=== PATIENT | female | born 1960 | race Caucasian/White ===

== ENCOUNTER 2022-09-14 16:27 | Outpatient (REF) | payer OTHER, SELFPAY ==
--- NOTE | ~2022-09-14 | MM_ITS ---
EXAMINATION: MM SCREENING DIGITAL BREAST TOMOSYNTHESIS, BILATERAL CLINICAL INFORMATION: Screening. Asymptomatic. The lifetime risk of breast cancer based on the Tyrer-Cuzick Model is 6%. COMPARISON: Outside mammography 06/14/2019, 12/15/2018, 12/07/2018, 12/02/2017 ([facility]). TECHNIQUE: Digital breast tomosynthesis is performed in both the craniocaudal and mediolateral oblique views along with computer-aided detection (CAD). Synthesized 2D images are generated from the tomosynthesis. FINDINGS: The breasts are heterogeneously dense, which may obscure small masses (ACR BI-RADS breast composition Category c). There are no significant masses, abnormal calcifications, or other abnormalities. Parenchymal pattern is similar to prior studies. There is no developing density or architectural abnormality. The axilla and skin contours are unremarkable. No significant changes. MM/MM tomosynthesis screening BI IMPRESSION: No mammographic evidence of malignancy. ASSESSMENT: BI-RADS 1: Negative RECOMMENDATION: Routine annual mammography screening. This patient's information was entered into a reminder system with a target due date for their next mammogram.
== END 2022-09-14 16:28 | disposition home or self-care (01) ==
LOC: HO.MAMMO 16:27
PROVIDERS: PCP Internal Medicine; Visit Provider Physician Assistant
DX: Z12.31 Encounter for screening mammogram for malignant neoplasm of breast (principal)
CPT/HCPCS: 77063; 77067

== ENCOUNTER 2022-12-13 16:59 | Outpatient (REF) | payer OTHER, SELFPAY ==
--- NOTE | ~2022-12-13 | XR_ITS ---
EXAMINATION: XR FOOT, RIGHT CLINICAL INFORMATION: Right foot pain. COMPARISON: None available. TECHNIQUE: AP, lateral, and oblique views of the right foot. FINDINGS: Minimal osteoarthritis in the 1st metatarsophalangeal joint with small marginal osteophytes. Joint spaces are normal. No erosions. Enthesopathic spurring is present at the Achilles tendon insertion on the calcaneus. Mild surrounding soft tissue swelling. Bones are osteopenic. XR/XR foot RT min 3V IMPRESSION: 1. 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 2. Enthesopathic spurring at the Achilles tendon insertion on the calcaneus with adjacent soft tissue swelling.
[2022-12-13 17:17] LABS: MANUAL DIFF FLAG NO
[2022-12-13 17:25] LABS: Basophils Percent Auto 0.4 % (0-2); Eosinophils Absolute Auto 0.2 X10*3/uL (0.0-0.4); Eosinophils Percent Auto 2.7 % (0-4); Hematocrit 41.1 % (37.0-47.0); Hemoglobin 13.4 g/dl (12.0-16.0); Imm Gran Abs Auto 0.02 X10*3/uL (0.00-0.03); Imm Gran Pct Auto 0.3 % (0.0-0.4); Lymphocytes Absolute Auto 2.6 X10*3/uL (1.2-4.9); Lymphocytes Percent Auto 36.8 % (20-40); Mean Corpuscular HGB Conc 32.6 g/dl (31.0-35.0); Mean Corpuscular Hemoglobin 30.1 pg (27.0-33.0); Mean Corpuscular Volume 92.4 fL (80.0-98.0); Monocytes Absolute Auto 0.5 X10*3/uL (0.1-1.2); Monocytes Percent Auto 6.6 % (2-11); Neutrophils Absolute Auto 3.8 x10*3/uL (2.0-8.3); Neutrophils Percent Auto 53.2 % (45-73); Platelet Count 198 X10*3/uL (160-400); Red Blood Count 4.45 X10*6/uL (4.20-5.50); Red Cell Distribution Width 12.2 % (11.0-16.0); White Blood Count 7.1 X10*3/uL (4.8-10.8)
[2022-12-13 17:52] LABS: Alanine Aminotransferase 11 U/L (0-31); Albumin Level 4.5 g/dL (3.5-5.0); Alkaline Phosphatase 80 U/L (39-117); Anion Gap 12 (12-20); Aspartate Amino Transferase 21 U/L (5-31); Bilirubin Total 0.3 mg/dL (0.0-1.0); Blood Urea Nitrogen 11 mg/dL (9-16); Calcium 10.1 mg/dL (8.4-10.2); Carbon Dioxide 28 mmol/L (22-29); Chloride 105 mmol/L (96-108); Cholesterol 189 mg/dL (<200); Estimated Glomerular Filt Rate > 60; Glucose Random 88 mg/dL (60-115); HDL Cholesterol 53 mg/dL (>40); LDL Cholesterol Calculated 117 mg/dL (<100); Potassium 4.4 mmol/L (3.3-5.1); Sodium 141 mmol/L (135-145); Total Protein 7.1 g/dL (6.5-8.0); Triglycerides 98 mg/dL (<150)
[2022-12-15 01:53] LABS: Prolactin 13.9 ng/mL
== END 2022-12-13 17:00 | disposition home or self-care (01) ==
LOC: HO.LAB 16:59
PROVIDERS: PCP Internal Medicine; Visit Provider Physician Assistant
DX: D35.2 Benign neoplasm of pituitary gland (principal); M79.671 Pain in right foot; Z00.00 Encounter for general adult medical examination without abnormal findings
CPT/HCPCS: 36415; 73630; 80053; 80061; 84146; 85025

== ENCOUNTER 2024-05-29 11:57 | Outpatient (REF) | payer OTHER, SELFPAY ==
--- OUTSIDE RECORDS SUMMARY | 2024-05-29 14:38 | XMS_ITS | Data Portability ---
Author Organization [facility], , [facility] Address [address] [place] [address] Assessment No assessment recorded. Plan of Treatment Reminders Order Date Submit Date Provider Last Modified By Organization Details Last Modified Time Details Appointments None record ed. Lab None record ed. Referral None record ed. Procedures None record ed. Surgeries None record ed. Imaging None record ed. Medication Orders None record ed. Patient TargetsNo targets recorded. Patient InstructionsNo instructions recorded. Reason for Referral None Reported. Results Created Date Observation Date Name Description Value Unit Range Abnormal Flag Note LastModifiedBy Organization Detail LastModifiedTime Result Notes None recorded. Procedures Surgical History Date Name Laterality Status Provider Name and Address Organization Details Recorded Time 5 Najma - Colonoscopy completed Jamar Yao MD [address] [place] [address], [id number], [facility] 03/12/2015 11:13:20 Imaging Results None recorded. Procedure Notes None recorded. Medical Equipment None Reported. Medications Name Sig Start Date Stop Date Status Note LastModified by Organization Details LastModified Time cabergoline 0.5 mg tabs active Not Available Not Available Not Available furosemide 40 mg tabs active Not Available Not Available Not Available cephalexin 250 mg caps active Not Available Not Available Not Available prochlorperazi ne maleate 10 mg tabs active Not Available Not Available Not Available naproxen 250 mg tabs active Not Available Not Available Not Available amoxicillin 500 mg caps active Not Available Not Available Not Available furosemide 20 mg tabs active Not Available Not Available Not Available hydroxyzine pamoate 25 mg caps active Not Available Not Available Not Available naproxen 500 mg tabs active Not Available Not Available Not Available oxycodone/acet aminophen 7.5-325 mgtabs active Not Available Not Availab le Not Available sertraline hcl 50 mg tabs active Not Available Not Available N ot Available hydrocodone/ac etaminophen 5-325 mgtabs active Not Available Not Available Not Available mupirocin 2 % oint active Not Available Not Available Not Available amoxicillin 500 mg capsule TAKE ONE CAPSULE BY MOUTH 3 TIMES A DAY FOR 8 DAYS active Not Available Not Available No t Available furosemide 40 mg tablet TAKE 1 TABLET BY MOUTH EVERY DAY active Not Available Not Available No t Available cephalexin 250 mg capsule TAKE ONE CAPSULE BY MOUTH 4 TIMES A DAY DIRECTED active Not Available Not Available No t Available hydrocodone 5 mg-acetaminoph en 325 mg tablet TAKE 1 TABLET BY MOUTH EVERY 6 HOURS NEEDED *USE SPARINGLY * active Not Available Not Available No t Available naproxen 250 mg tablet TAKE 1 TABLET BY MOUTH TWICE A DAY NEEDED FOR PAIN active Not Available Not Available No t Available cabergoline 0.5 mg tablet TAKE 1 TABLET BY MOUTH THREE TIMES A WEEK active Not Available Not Available No t Available mupirocin 2 % topical ointment APPLY TO SORES ON FACE AND HANDS, AND IN NOSE TWICE A DAY UNTIL HEALED. active Not Available Not Available No t Available furosemide 20 mg tablet TAKE 1 TABLET BY MOUTH EVERY DAY active Not Available Not Available No t Available oxycodone-acet aminophen 7.5 mg-325 mg tablet TAKE 1 TABLET BY MOUTH EVERY 8 HOURS NEEDED FOR PAIN active Not Available Not Available No t Available sertraline 50 mg tablet TAKE 1 TABLET BY MOUTH ONCE A DAY active Not Available Not Available No t Available naproxen 500 mg tablet TAKE 1 TABLET BY MOUTH TWICE A DAY NEEDED FOR PAIN active Not Available Not Available No t Available hydroxyzine pamoate 25 mg capsule TAKE 1 TO 2 CAPSULES BY MOUTH AT BEDTIME NEEDED active Not Available Not Available No t Available Vitals None Recorded Social History None recorded. Functional Status None recorded. Mental Status None recorded. Family History Nothing Reported. Medical History No medical history recorded. Gynecological HistoryNo gynecological history recorded. Obstetrics History GPAL:G 0 P 0 0 0 0 Past Encounters Encounter ID Performer Location Encounter Start Date Encounter Closed Date Diagnosis/Indication Diagnosis SNOMED-CT Code Diagnosis ICD10 Code Diagnosis Note [id number] Alley Hicks [facility], [address] [phone] 03/12/2015 09:46:33 03/12/2015 13:27:12 Health Concerns Section Related Observation LastModified by Organization Detai ls LastModified Time None Recorded Concern Status LastModified by Organization Details LastModified Time None Recorded Advance Directives Directive None Recorded Payers Encounter Date Sequence Insurance Name Policy Number Policy Dias Covered Member ID Dias Member ID Guarantor Name 03/12/2015 1 [facility] [id number] Jeannie Larson [id number] Jeannie Larson OBGyn Episode No OBEpisode recorded.
--- OUTSIDE RECORDS SUMMARY | 2024-05-29 14:38 | XMS_ITS | Data Portability ---
Author Organization [facility], Home Service Address [address] [place] [address] Assessment Encounter Date Assessment Date Assessment LastModified by Organization Details LastModified Time 04/15/2021 04/15/2021 Patient agreed and verbally consents to this audio and video Telehealth appt via a secure platform [email or web address] Not available 04/15/2021 11:22:46 Plan of Treatment Reminders Order Date Submit Date Provider Last Modified By Organization Details Last Modified Time Details Appointments ANNUA L EXAM 2025 09:45A M MARTIN MCQUEEN Not available Not available Not available Lab CMP, serum or plasm a 2024 025 [facility], [address] [place] [address], [id number], 05/04/2024 10:29:55 CBC w/ auto diff 2024 025 [facility], [address] [place] [address], [id number], 04/27/2024 14:43:55 lipid panel , blood 2024 025 [facility], [address] [place] [address], [address], 04/27/2024 14:43:56 hemog lobin A1c, QN, blood 2024 025 [facility], [address] [place] [address], [address], 04/27/2024 14:43:55 vitam in D, 25-hy droxy , total , serum 2024 025 [facility], [address] [place] [address], [address], 05/04/2024 10:33:29 TSH + free T4, serum 2024 025 [facility], [address] [place] [address], [address], 05/04/2024 10:33:29 prola ctin, serum 2022 023 [facility], [address] [place] [address], [address], 12/15/2022 12:33:28 CMP, serum or plasm a 2022 023 [facility], [address] [place] [address], [address], 12/14/2022 12:37:25 CBC w/ auto diff 2022 023 [facility], [address] [place] [address], [address], 12/14/2022 12:37:25 lipid panel , blood 2022 023 [facility], [address] [place] [address], [address], 12/14/2022 12:37:25 proth rombi n time 2021 022 ATHENA[facility]X Not available 04/15/2021 11:25:09 PT/IN R 2021 022 MUSTAPHA Not available 04/20/2021 06:55:59 facto r V mutat ion, blood or tissu e 2021 022 MUSTAPHA Not available 04/22/2021 14:37:55 prote in C + prote in S, funct ional panel , plasm a 2021 022 MUSTAPHA Not available 07/16/2021 20:22:37 facto r VIII activ ity, plasm a 2021 MUSTAPHA Not available 04/20/2021 11:49:05 facto r IX activ ity, plasm a 2021 MUSTAPHA Not available 04/23/2021 16:19:11 homoc ystei ne, serum or plasm a 2021 022 MUSTAPHA Not available 04/18/2021 16:25:17 Referral gastr [facility] 2024 025 [facility] Gastroenterology Scheduling Department, [address] [facility] [place], [address], 05/01/2024 08:23:45 [facility] 2022 023 [facility]ry, [address] [facility] [address], [place], [address], 12/15/2022 08:22:54 Procedures None recor ded. Surgeries None recor ded. Imaging MAMMO , scree kimani, digit al, bilat eral 2024 [facility] Central Scheduling, [address] [place], [address], 05/11/2024 08:35:26 XR, lumbo sacra l spine , 2 or 3 view 2024 025 [facility] Central Scheduling, [address] [place], [address], 05/11/2024 08:38:35 XR, hip, unila teral , 2 or 3 view 2024 025 [facility] Central Scheduling, [address] [place], [address], 05/11/2024 08:38:24 XR, foot, 3 or more view 2022 023 [facility] Central Scheduling, [address] [facility], [place], [address], 12/14/2022 15:31:50 Medication Orders furos emide 20 mg table t 2021 [email or web address] [id number], [address] [facility] [address], [place], [place], [id number], 04/27/2024 14:24:28 parox etine 10 mg table t [email or web address] [facility]92419, [facility] [place], [id number], 12/13/2022 15:55:18 trama dol 50 mg table t 2021 0[address] [facility] [facility], [address] [facility] [address], [place], [place], [id number], 12/13/2022 15:56:11 gabap entin 300 mg capsu le 2021 0[address] [facility] [facility]248, [address] [facility], [place], [place], [id number], 12/13/2022 15:54:35 hydro chlor othia zide 12.5 mg table t 2020 021 [facility] #[id number], [address] [facility] , [place], [place], [id number], 02/06/2021 11:02:10 Patient TargetsNo targets recorded. Patient InstructionsNo instructions recorded. 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 [facility]ascul[facility] r [address] , [place], [address], 09/28/2021 10:10:22 09/17/19 23 09/14/2022 MAMMO , scree kimani, digit al, bilat eral No observ ation record ed. [facility] [address] , [place], [address], 09/16/2022 15:46:24 12/15/19 23 12/13/2022 XR, foot, 3 or more view No observ ation record ed. [email or web address] [facility] [address] [facility], [place], [address], 12/15/2022 10:14:48 Result Notes None recorded. Problems Name Problem SNOMED Code Status Onset Date Resolution Date Notes Provider Name and Address Organization Details Recorded Time Low back pain 066785389 Active 2017 Not Available [facility] 2 08:41:31 Sciatica 29350691 Active 2017 Not Available [facility] 2 08:41:31 Chronic headache disorder 937706473 Active 2017 Not Available [facility] 2 08:41:31 Edema of lower extremity 734005351 Active 2017 Not Available [facility] 2 08:41:31 Impingeme nt syndrome of shoulder region 716137709 Active 2017 Not Available [facility] 2 08:41:31 Essential hypertens ion 28894260 Active 2017 Not Available [facility] 2 08:41:31 Subarachn oid hemorrhag e 04457262 Active 2017 Not Available [facility] 2 08:41:31 Cerebrova scular accident 800209080 Active 2020 Not Available [facility] 2 08:41:31 Deep venous thrombosi s of lower extremity 407297778 Active 2021 MARTIN MCQUEEN [address] [place], [address], [facility] 2 16:31:17 Deep venous thrombosi s of lower extremity 009368138 Active 2021 MARTIN MCQUEEN [address] [place] [address], [address], [facility] 2 16:31:38 Menopause Active 2021 MARTIN MCQUEEN [address] [place] [address], [address], [facility] 2 16:33:09 Pain in right foot 382331816346 107 Active 2022 MARTIN MCQUEEN [address] [place] [address], [address], [facility] 3 16:06:30 Prolactin linda 810970957 Active 2022 MARTIN MCQUEEN [address] [place] [address], [address], [facility] 3 16:16:45 Insertion al Achilles tendinopa thy 774164288 Active 2022 MARTIN MCQUEEN [address] [place] [address], [address], [facility] 3 10:15:10 Constipat ion 37127866 Active 2024 MARTIN MCQUEEN [address] [place] [address], [address], [facility] 5 14:39:52 Raynaud's disease 681430823 Active 2024 MARTIN MCQUEEN [address] [place] [address], [address], [facility] 14:40:46 Problem Notes None recorded. Procedures Surgical History Date Name Laterality Status Provider Name and Address Organization Details Recorded Time Tubal Ligation completed Tonia lundy NP, S [address] [place], [address], [facility] 11/30/2017 15:51:23 Partial Hysterectomy completed Tonia Saldivar NP, S [address] [place], [address], [facility] 11/30/2017 15:51:31 Imaging Results Imaging Date Name Status LastModified by Organiz ation Details LastModified Time 09/23/2021 imaging/diagn ostic result completed [facility] [address] , [place], [address], 09/28/2021 10:10:22 09/14/2022 MAMMO, screening, digital, bilateral completed [facility] [address] [place] [address] [place], [address], 09/16/2022 15:46:24 12/13/2022 XR, foot, 3 or more view completed [facility] Central Scheduling [address] [facility], [place], [address], 12/15/2022 10:14:48 Procedure Notes None recorded. Medical Equipment None Reported. Allergies No known drug allergies Medications Name Sig Start Date Stop Date Status Note LastModified by Organization Details LastModified Time amoxicillin 500 mg capsule TAKE 1 CAPSULE BY MOUTH 3 TIMES A DAY 12/13 completed Not Available Not Available Not Available prednisone 10 mg tablet TAKE 4 TABLETS BY MOUTH X3DAYS, THEN 3 TABS X3DAYS, 2 TABS X3DAYS, 1 TAB X3 DAYS 01/27 completed Not Available Not Available Not Available paroxetine 10 mg tablet TAKE 1 TABLET BY MOUTH EVERY DAY 12/13 completed Not Available Not Available Not Available atorvastati n 10 mg tablet Take 1 tablet every day by oral route. 01/27 completed Not Available Not Available Not Available meloxicam 15 mg tablet TAKE 1 TABLET BY MOUTH EVERY DAY 07/31 completed Not Available Not Available Not Available tramadol 50 mg tablet Take 1 tablet every 6 hours by oral route as needed for 7 days. 12/13 completed Not Available Not Available Not Available aspirin 325 mg tablet,sofy yed release TAKE 1 TABLET BY MOUTH EVERY DAY FOR 30 DAYS 07/31 completed Not Available Not Available Not Available cephalexin 500 mg capsule Take 1 capsule every 8 hours by oral route. 11/30 completed Not Available Not Available Not Available gabapentin 300 mg capsule TAKE 1 CAPSULE BY MOUTH EVERY DAY 12/13 completed Not Available Not Available Not Available diclofenac sodium 75 mg tablet,sofy yed release TAKE 1 TABLET BY MOUTH TWICE DAILY 01/27 completed Not Available Not Available Not Available hydrochloro thiazide 25 mg tablet Take 1 tablet every day by oral route for 30 days. 07/31 completed Not Available Not Available Not Available furosemide 20 mg tablet TAKE 1 TABLET BY MOUTH EVERY DAY 04/27 completed Not Available Not Available Not Available ibuprofen 600 mg tablet TAKE 1 TABLET BY MOUTH EVERY 4 TO 6 HOURS NEEDED 04/27 completed Not Available Not Available Not Available methylpredn isolone 4 mg tablets in a dose pack as directed 11/30 completed Not Available Not Available Not Available ondansetron 4 mg disintegrat ing tablet DISSOLVE 1 TABLET (4 MG) BY MOUTH EVERY 6 HOURS NEEDED FOR NAUSEA 07/31 completed Not Available Not Available Not Available oxycodone 5 mg tablet TAKE 1 TABLET BY MOUTH EVERY 6 HOURS NEEDED FOR PAIN. (DO NOT DRIVE WHILE ON THIS MEDICATIO N) 07/31 completed Not Available Not Available Not Available Estrace 0.01% (0.1 mg/gram) vaginal cream Insert 1 g every 72 hours by vaginal route at bedtime. 01/27 completed Not Available Not Available Not Available chlorhexidi ne gluconate 0.12 % mouthwash SWISH AND SPIT 15 ML IN THE MORNING AND IN THE EVENING FOR 2 WEEKS 12/13 completed Not Available Not Available Not Available hydrochloro thiazide 12.5 mg tablet Take 1 tablet every day by oral route for 30 days. 02/06 completed Not Available Not Available Not Available Raven DVT-PE Treatment 30-Day Starter 5 mg (74 tablets) in dose pack TAKE 2 TABLETS BY MOUTH TWO TIMES A DAY FOR 7 DAYS FOLLOWED BY 1 TABLET TWO TIMES A DAY 07/31 completed Not Available Not Available Not Available Dotflux COVID-19 Vaccine (PF) 30 mcg/0.3 mL IM susp (purple) 01/30 completed Not Available Not Available Not Available Vitals Date Recorded Body height Body mass index (BMI) Body weight Oxygen saturation Oxygen saturation in Arterial blood by Pulse oximetry Heart rate Systolic blood pressure Diastolic blood pressure Provider Name and Address Organization Details Last Updated DateTime 1 162.56 cm 29.6 kg/m2 43958.4 g 99 % 99 % 55 /min 142 mm[Hg] 82 mm[Hg] Ary Ruiz [facility] 1 10:44:29 Date Recorded Body height Body mass index (BMI) Body weight Heart rate Oxygen saturation Oxygen saturation in Arterial blood by Pulse oximetry Systolic blood pressure Diastolic blood pressure Provider Name and Address Organization Details Last Updated DateTime 2 162.56 cm 30 kg/m2 53112.3 1 g 63 /min 98 % 98 % 140 mm[Hg] 70 mm[Hg] MARTIN MCQUEEN [address] [place] [address], [address] [place] [address] Internal Medicine 2 16:18:55 Date Recorded Body height Body mass index (BMI) Body weight Heart rate Oxygen saturation Oxygen saturation in Arterial blood by Pulse oximetry Systolic blood pressure Diastolic blood pressure Provider Name and Address Organization Details Last Updated DateTime 3 162.56 cm 26.4 kg/m2 30622.7 9 g 55 /min 98 % 98 % 132 mm[Hg] 76 mm[Hg] Jessica Howard [facility] 3 15:52:19 Date Recorded Body height Body mass index (BMI) Body weight Heart rate Oxygen saturation Oxygen saturation in Arterial blood by Pulse oximetry Systolic blood pressure Diastolic blood pressure Provider Name and Address Organization Details Last Updated DateTime 5 162.56 cm 22.3 kg/m2 46507.7 3 g 60 /min 97 % 97 % 134 mm[Hg] 84 mm[Hg] MARTIN MCQUEEN [address] [place], [address] [place], [place] - [facility] Internal Medicine 14:26:26 Social History Question Answer Notes LastModified by Organizat ion Details LastModified Time Tobacco Smoking Status Former Smoker Not Available [facility] 02/05/2020 03:36:23 What Was The Date Of Your Most Recent Tobacco Screening? 04/27/2024 Information not available 04/27/2024 Do You Or Have You Ever Used Any Other Forms Of Tobacco Or Nicotine? No Information not available 07/31/2021 Sex: Unknown Functional Status None recorded. Mental Status None recorded. Family History Relationship Description Onset Age of this Age Resolved Age Notes LastModified by Organization Details LastModified Time Mother Coronary arterioscler osis 60 [email or web address] Not available 2017 15:49:39 Brother Deep venous thrombosis 57 [email or web address] Not available 04/27 14:12:10 Notes:father trauma age 47 Medical History Condition Response Coronary Artery Disease N Gout N Other Kidney Stones N Blood Diseases N Hyperthyroidism N Blood Transfusion N Breast Cancer N Hypothyroidism N Lung Disease N Depression N Defects or Inherited Disease N Difficulty Swallowing N Anesthesia Complications N Anxiety Disorder N Obesity Y Vision or Eye Problems Y Arthritis Y Infertility N Cancer N Varicosities Y Endometriosis Y Bladder or Kidney Problems N High Cholesterol N Liver Disease N Fibromyalgia N Headaches N Kidney Disease N Allergies/Hayfever Y Heart Problems N Hospitalizations Y Thyroid Problems N GI Problems N Eating Disorder N Anemia N Constipation Y Diabetes N Seizures/Epilepsy N Tuberculosis N Congestive Heart Failure (CHF) N Eczema N Abuse/Domestic Violence N Diverticulitis N Asthma N Reflux/GERD N Hepatitis N Heart Disease N Pulmonary Embolism N Chronic Ear Infections N Hypertension Y Chicken Pox Y Autism Spectrum Disorder (ASD) N Thrombophilias N Gynecological History Statement/Question Response If Post Menopausal, Age at Menopause 54 Sexually Active? Y On BCP's at Conception? Y STIs/STDs Y HPV Vaccine N Sexual Problems? Y Current Control Method Menopause Age at Menarche 15 Age at First Child 20 Obstetrics History GPAL:G 4 P 3 0 1 0 Type Value Full Term 3 Spontaneous 1 Total 4 Immunizations Vaccine Type Date Status Note Provider Nam e and Address Organization Details Recorded Time COVID-19, mRNA, LNP-S, PF, 30 mcg/0.3 mL dose 04/22/2020 completed Ary grace [facility] 01/23/2021 08:41:53 COVID-19, mRNA, LNP-S, PF, 30 mcg/0.3 mL dose 05/03/2020 completed Ary grace [facility] 01/23/2021 08:42:01 Tdap 07/23/2023 completed MARTIN MCQUEEN [address] [place], [address], [facility] 04/27/2024 14:43:43 Past Encounters Encounter ID Performer Location Encounter Start Date Encounter Closed Date Diagnosis/Indication Diagnosis SNOMED-CT Code Diagnosis ICD10 Code Diagnosis Note [id number] Tonia Saldivar NP, S [facility] [address] [facility] [address] 11/07/2017 14:47:52 11/08/2017 08:31:45 Screening procedure 25379935 Z13.9 schedule CPE Pituitary adenoma 796882 000 D35.2 history of Bee sting 968224186 T63. 91XA Subarachno id hemorrhage 31459192 I60.9 Congrats on weight loss Essential hypertension 78714430 I10 no medication s, follow [id number] Tonia Saldivar NP, S [facility] [address] [facility] [address] 11/30/2017 15:33:13 11/30/2017 17:13:31 Adult health examination 821800989 Z00.00 Screening procedure 2012 5006 Z13.9 History of deep vein thrombosis 626313479 Z86.718 family history ( brother ) Hypercholesterolemia 136 00717 E78.00 Subarachno id hemorrhage 58862328 I60.9 no current concerns Essential hypertension 53457166 I10 follow History of pituitary adenoma 9257209428 86483 Z86.011 nml prolactin [id number] MARTIN MCQUEEN [facility] Internal Medicine [address] [facility] [address] 04/01/2020 08:40:52 04/01/2020 12:08:56 Lumbago with sciatica 983852384 M54.42 trial of pred for nerve impingemen t of the cervical spine and the lumbar spine if no benefit pt will call and will trial tramadol Cervical radiculopathy 04620568 M54.12 left sided, will see if pred helps [id number] MARTIN MCQUEEN Internal Medicine [address] [facility] [address] 01/27/2021 10:36:37 01/27/2021 15:13:35 Essential hypertension 94260246 I10 BP elevated in office, will start the patient on HTCZ for BP control and for mild lower extermity edema Pre-surger y evaluation 522324525 Z01.818 Patient agreed and verbally consents to this audio and video Telehealth appt via a secure platform [id number] MARTIN MCQUEEN Internal Medicine [address] [facility] [address] 04/15/2021 09:18:20 04/22/2021 13:48:03 Deep venous thrombosis of lower extremity 374083035 I82.452 will follow up with testing to r/o blood disorder due to clotting [id number] MARTIN MCQUEEN Internal Medicine [address] [facility] [address] 07/31/2021 16:11:12 08/03/2021 15:43:54 Cerebrovascular accident 374289394 I63.00 I63.89 resolvedhe morrhagic stroke Edema of l ower extremity 625766158 R60.0 will start back on lasix for edema, start on medication for pain management cannot be on NSAIDs due to CVA due to bleed in the past Deep venou s thrombosis of lower extremity 178631929 I82.452 seeing hematology , has fu with vascular surgeon in [facility] start some medication Menopause 180410620 N95. 1 will trial paxil for the menopause [id number] MARTIN MCQUENE Internal Medicine [address] [facility] [facility] [address] 12/13/2022 15:47:00 12/13/2022 16:34:02 Active or passive immunization 456844646 Z23 up to date Adult heal th examination 182250674 Z00.00 advised Cerebrovas cular accident 124016778 I63.00 I63.89 resolvedhe morrhagic stroke Essential hypertension 18319140 I10 BP is stable Deep venou s thrombosis of lower extremity 013274791 I82.452 seeing hematology , has fu with vascular surgeon in [facility] start some medication Pain in right foot 83952 06905 76296 M79.671 will set up with XRs and pod referral Prolactinoma 806493010 D 35.2 needs recheck [id number] MARTNI MCQUEEN [facility] Internal Medicine [address],[place] [address] 04/27/2024 14:11:14 04/27/2024 14:50:35 Active or passive immunization 267963985 Z23 recommende d RSV and shingles vaccine Adult heal th examination 505337203 Z00.00 advised Depression screening 171 915605 Z13.31 SCREENING NEGATIVE Screening mammography 24 557490 Z12.31 will set up with MM Screening for malignant neoplasm of colon 765873376 Z12.11 will set up with GI Low back pain 724271686 M54.59 will set up with XR's Raynaud's disease 492801 006 I73.00 stable, recommende d gloves Constipation 97053365 K5 9.00 recommende d miralax everyday and increasing water intake, decrease caffeine intake Health Concerns Section Related Observation LastModified by Organization Detai ls LastModified Time None Recorded Concern Status LastModified by Organization Details LastModified Time None Recorded Advance Directives Directive None Recorded Payers Encounter Date Sequence Insurance Name Policy Number Policy Dias Covered Member ID Dias Member ID Guarantor Name 01/27/2021 1 [facility] [id number] David Larson [id number] Jeannie Graves 04/15/2021 1 [facility] [id number] David Larson [id number] Jeannie Graves 07/31/2021 1 [facility] [id number] David Larson [id number] Jeannie Graves 12/13/[address] [place] [address] [id number] Jeannie Graves [id number] Jeannie Graves 04/27/2024 1 [facility] (O) David Larson [id number] Jeannie Graves Notes Date Note Type Note Provider Name a nd Address Organization Details Recorded Time 1 text/html Pre-OpReported bypatient.Surgery to be Performed:left ankle reconstruction with Dr. Marla Fabian through [facility] Severity:pain level at baseline 5-6/10 pain level at worse 8-9/10 Risk Factorsno cognitive impairment; no functional impairment; no malnutrition; no frailty; able to climb a flight of stairs (exercise capacity>4 METS); no obstructive sleep apnea; non-smoker; no alcohol misuse; no illicit drug use; not obese;chronic cardiopulmonary condition(hypertensio n, hx of CVA) Anesthesia hx:no hx of anesthesia complications; no allergy to anesthetic agents; no family history of anesthesia complications Functional Ability:able to walk up stairs; able to perform heavy work around the house; no difficulty walking up hills; able to walk 4 mph Post-Op Support:adequate assistance at home (family) MARTIN MCQUEEN [address] [place] [address], [address], [facility] 01/27/2021 10:58:35 2 text/html hospital f/u tele-med phone callpatient consents to phone call the patient reports that she presented to the ER due to DVTwas sent by CARLIE after being seen developing swelling and calf pain per conversation with patient, at her fu in March she had mentioned it to her surgeon who told her it was probably from the surgerywhen the pain and swelling got worse, she called the office and was booked for an appt on Tuesday, she called them on , apparent mis-communication between the nurse and provider about her symptomswas then seen and was set up with STAT DVT r/o patient was diagnosed with DVT, sent to the hospital, patient did as radiology to call us but originally told her they do call PCP, though given my understanding of her pertinent medical hx around her brain bleed it would be more important for me to be informed in case she was started on a blood thinner ER worked her up and evaluated her, was started on eliquis starter pack and d/crecommended blood work fu for her condition given prominent family hx of clotting (mother, brother and son have all had serious blood clots, mother of a blood clot) blood work sent to [facility] given some of the tests are specialized and most likely can only be performed in an office setting will fu with patient after the results come in will need repeat US duplex in three months at the end of her treatment for DVT to see if the clot has resolved or is stable MARTIN MCQUEEN [address] [place], [id number], [facility] 04/15/2021 11:32:49 2 text/html medication f/u the patient here for f/u the [facility], possible [facility] from DVT can d/c eliquis given it was provoked and she has completed 3 to 4 mos of anti-coag therapy with resolution of the DVT per vascular with recheck US duplex will fu with treatment options for increased functionality and pain having hot flashes againwill start on paxilHRT not recommended to increased risk with clotting with estrogen therapy MARTIN MCQUEEN [address] [place], [id number], [facility] 07/31/2021 16:51:01 3 text/html Annual WellnessReported bypatient.Diet and Nutrition:healthy diet; discussed vitamin and supplement use; discussed portion control; discussed maintaining calcium balance; discussed diet improvement Fracture Risk:no history of fractures; no recent explained fracture; no sudden unexplained fractures; no previous musculoskeletal injuries Physical Activity:exercises on a regular basis; recent increase in physical activity; good physical condition Additional Lifestyle Factors:no tobacco use; no alcohol intake; stopped drinking alcohol Depression Risk:never feels sad, empty, or tearful; no loss of interest in activities; no significant changes in weight; no sleep disturbances or insomnia; no agitation; no loss of energy; no feelings of worthlessness or guilt; no thoughts of suicide; no history of depression; no history of mood disorders Hearing:no loss of hearing Vision:no vision problems MARTIN MCQUEEN [address] [place], [id number], [facility] 12/13/2022 16:26:00 5 text/html Annual WellnessReported bypatient.Diet and Nutrition:healthy diet Fracture Risk:no history of fractures; no recent explained fracture; no sudden unexplained fractures; no previous musculoskeletal injuries Physical Activity:exercises on a regular basis; recent increase in physical activity; good physical condition Additional Lifestyle Factors:no tobacco use; no alcohol intake; stopped drinking alcohol Depression Risk:never feels sad, empty, or tearful; no loss of interest in activities; no significant changes in weight; no sleep disturbances or insomnia; no agitation; no loss of energy; no feelings of worthlessness or guilt; no thoughts of suicide; no history of depression; no history of mood disorders Hearing:no loss of hearing Vision:no vision problems MARTIN MCQUEEN [address] [place] [address], [id number], [facility] 04/27/2024 14:49:07 OBGyn Episode No OBEpisode recorded.
== END 2024-05-29 11:58 | disposition home or self-care (01) ==
LOC: HO.MAMMO 11:57
PROVIDERS: PCP Internal Medicine; Visit Provider Physician Assistant
DX: Z12.31 Encounter for screening mammogram for malignant neoplasm of breast (principal)
CPT/HCPCS: 77063; 77067

== ENCOUNTER → 2024-05-29 12:00 | Outpatient (BNV) | payer OTHER, SELFPAY | PROVIDERS: PCP Internal Medicine; Visit Provider Internal Medicine | DX: Z12.31 Encounter for screening mammogram for malignant neoplasm of breast (principal) | CPT/HCPCS: 77063; 77067 ==